=== PATIENT | male | born 1955 | race Caucasian/White ===

== ENCOUNTER 2021-11-06 10:09 | Observation (INO) ==
--- NOTE | 2021-10-06 08:47 | PAT Medication Instructions ---
Medication Instructions Date of Service October 06, 2021 Home Medications atorvastatin 80 mg tablet 80 mg PO QAM clonazepam 0.5 mg tablet 0.25 mg PO QAM diclofenac sodium 75 mg tablet,delayed release 75 mg PO BID doxazosin 2 mg tablet 2 mg PO HS esomeprazole magnesium 40 mg capsule,delayed release 40 mg PO BID famotidine 40 mg tablet 40 mg PO HS lisinopril 20 mg-hydrochlorothiazide 25 mg tablet 0.5 tab PO QAM montelukast 10 mg tablet (Singulair) 10 mg PO QAM potassium chloride 10 mEq capsule,extended release 10 meq PO QAM torsemide 20 mg tablet 20 mg PO QAM valacyclovir 1 gram tablet 2,000 mg PO DAILY PRN bupropion HCl 100 mg tablet,12 hr sustained-release 100 mg PO BID cyclobenzaprine 10 mg tablet 10 mg PO HS d-mannose 500 mg capsule 500 mg PO BID fenofibrate nanocrystallized 145 mg tablet 145 mg PO QAM fentanyl 50 mcg/hr transdermal patch 1 patch TRANSDERMAL Q72H ferrous sulfate 325 mg (65 mg iron) tablet (iron) 325 mg PO QAM folic acid 1 mg tablet 1 mg PO QAM lactobacillus combination no.4 3 billion cell capsule (Probiotic) 3,000 mmu cells PO QAM levothyroxine 125 mcg tablet 125 mcg PO QAM [id number] 24,000-76,000-120,000 unit capsule,delayed rel (Creon) 3 - 4 cap PO BID multivitamin 1 cap PO QAM oxycodone-acetaminophen 5 mg-325 mg tablet 1 tab PO Q6H PRN sertraline 100 mg tablet 150 mg PO QAM sucralfate 1 gram tablet (Carafate) 1 g PO HS tafluprost (PF) 0.0015 % eye drops in a dropperette (Zioptan (PF)) 1 drp OPHTHALMIC (EYE) PM testosterone cypionate 200 mg/mL intramuscular kit 200 mg SUBCUT Q7D vibegron 75 mg tablet (Gemtesa) 75 mg PO QAM Continue as directed testosterone cypionate 200 mg/mL intramuscular kit 200 mg SUBCUT Q7D fentanyl 50 mcg/hr transdermal patch 1 patch TRANSDERMAL Q72H (avoid placement near surgery site prior to surgery) ASK your surgeon for instructions diclofenac sodium 75 mg tablet,delayed release 75 mg PO BID STOP taking 2 weeks before surgery (or as soon as possible if surgery is within 2 weeks) d-mannose 500 mg capsule 500 mg PO BID STOP taking 48 hours before surgery fenofibrate nanocrystallized 145 mg tablet 145 mg PO QAM DO NOT take the morning of surgery lisinopril 20 mg-hydrochlorothiazide 25 mg tablet 0.5 tab PO QAM montelukast 10 mg tablet (Singulair) 10 mg PO QAM potassium chloride 10 mEq capsule,extended release 10 meq PO QAM torsemide 20 mg tablet 20 mg PO QAM ferrous sulfate 325 mg (65 mg iron) tablet (iron) 325 mg PO QAM folic acid 1 mg tablet 1 mg PO QAM lactobacillus combination no.4 3 billion cell capsule (Probiotic) 3,000 mmu cells PO QAM [id number] 24,000-76,000-120,000 unit capsule,delayed rel (Creon) 3 - 4 cap PO BID multivitamin 1 cap PO QAM Take morning of surgery With a small sip of water, OTHERWISE NOTHING TO EAT OR DRINK AFTER MIDNIGHT: atorvastatin 80 mg tablet 80 mg PO QAM clonazepam 0.5 mg tablet 0.25 mg PO QAM esomeprazole magnesium 40 mg capsule,delayed release 40 mg PO BID valacyclovir 1 gram tablet 2,000 mg PO DAILY PRN (if needed) bupropion HCl 100 mg tablet,12 hr sustained-release 100 mg PO BID levothyroxine 125 mcg tablet 125 mcg PO QAM oxycodone-acetaminophen 5 mg-325 mg tablet 1 tab PO Q6H PRN (if needed) sertraline 100 mg tablet 150 mg PO QAM vibegron 75 mg tablet (Gemtesa) 75 mg PO QAM Take evening before surgery esomeprazole magnesium 40 mg capsule,delayed release 40 mg PO BID famotidine 40 mg tablet 40 mg PO HS valacyclovir 1 gram tablet 2,000 mg PO DAILY PRN (if needed) bupropion HCl 100 mg tablet,12 hr sustained-release 100 mg PO BID cyclobenzaprine 10 mg tablet 10 mg PO HS d-mannose 500 mg capsule 500 mg PO BID [id number] 24,000-76,000-120,000 unit capsule,delayed rel (Creon) 3 - 4 cap PO BID oxycodone-acetaminophen 5 mg-325 mg tablet 1 tab PO Q6H PRN (if needed) sucralfate 1 gram tablet (Carafate) 1 g PO HS tafluprost (PF) 0.0015 % eye drops in a dropperette (Zioptan (PF)) 1 drp OPHTHALMIC (EYE) PM Other Notes If you have any questions please call us at [phone] or [phone] or [phone] or [phone]
--- NOTE | 2021-10-07 10:38 | Anesthesiology Consultation ---
Date of Service October 07, 2021 Assessment & Plan (1) Encounter for pre-operative examination: - Cr 3.2, GFR 18 pre-op: I spoke with EVARISTO Toledo at PCP office who advised he does have known CKD stage 3 though last Cr on file was 2.3. She states they will further follow with patient and aware I will fax optimization note/clearance with testing completed today for pre-op clearance. Pt and aware, they state will also call PCP to further discuss. Awaiting PCP clearance. - pt preference to avoid laying flat d/t GERD/multi-level spinal fusion. - difficult intubation: severe cervical ROM limitation s/p fusion: cannot tip head to drink-uses straw. - COVID screening: Per assessment on 10/07/2021: Travel screen negative, no known COVID-19 positive contacts or current COVID-19 related symptoms in past 2 weeks. Pt vaccinated. Surgeon arranging preop COVID testing, scheduled 11/04/2021. Awaiting results. Chart Review Chart Review: Pending: Refer to Additional Notes / Consult section and Patient seen in Pre Admission Testing Teaching & Discussion Pre-Anesthesia Teaching/Discussion Notes: Instructed NPO after midnight before surgery, except medications with 15 cc of water. Medication instructions provided according to the PAT guidelines. History Surgery Operation Date: 11/06/21 08:10 Proposed Procedures p Left Reverse Total Shoulder Arthroplasty - Palomo Godoy DO Height/Weight Height: 5 ft 5 in Weight: 95.9 kg Allergies Allergy/AdvReac Type Severity Reaction Status Date / Time Sulfa (Sulfonamide Allergy Intermediate Verified 10/05/21 11:03 Antibiotics) prochlorperazine AdvReac Intermediate Verified 10/05/21 11:03 [From Compazine] Medications Home Medications Medication Instructions Recorded Confirmed Last Taken atorvastatin 80 mg tablet 80 mg PO QAM 08/25/21 10/07/21 Unknown clonazepam 0.5 mg tablet 0.25 mg PO QAM 08/25/21 10/07/21 Unknown diclofenac sodium 75 mg 75 mg PO BID 08/25/21 10/07/21 Unknown tablet,delayed release doxazosin 2 mg tablet 2 mg PO HS 08/25/21 10/07/21 Unknown esomeprazole magnesium 40 mg 40 mg PO BID cap 08/25/21 10/07/21 Unknown capsule,delayed release famotidine 40 mg tablet 40 mg PO HS 08/25/21 10/07/21 Unknown lisinopril 20 0.5 tab PO QAM 08/25/21 10/07/21 Unknown mg-hydrochlorothiazide 25 mg tablet montelukast 10 mg tablet 10 mg PO QAM 08/25/21 10/07/21 Unknown (Singulair) potassium chloride 10 mEq 10 meq PO QAM 08/25/21 10/07/21 Unknown capsule,extended release torsemide 20 mg tablet 20 mg PO QAM tab 08/25/21 10/07/21 Unknown valacyclovir 1 gram tablet 2,000 mg PO DAILY PRN tab 08/25/21 10/07/21 Unknown bupropion HCl 100 mg tablet,12 hr 100 mg PO BID 10/05/21 10/07/21 Unknown sustained-release cyclobenzaprine 10 mg tablet 10 mg PO HS 10/05/21 10/07/21 Unknown d-mannose 500 mg capsule 500 mg PO BID 10/05/21 10/07/21 Unknown fenofibrate nanocrystallized 145 145 mg PO QAM 10/05/21 10/07/21 Unknown mg tablet fentanyl 50 mcg/hr transdermal 1 patch TRANSDERMAL Q72H 10/05/21 10/07/21 Unknown patch ferrous sulfate 325 mg (65 mg 325 mg PO QAM 10/05/21 10/07/21 Unknown iron) tablet (iron) folic acid 1 mg tablet 1 mg PO QAM 10/05/21 10/07/21 Unknown lactobacillus combination no.4 3 3,000 mmu cells PO QAM 10/05/21 10/07/21 Unknown billion cell capsule (Probiotic) levothyroxine 125 mcg tablet 125 mcg PO QAM 10/05/21 10/07/21 Unknown ylsonl-krjfergv-vmozakw 3 - 4 cap PO BID 10/05/21 10/07/21 Unknown 24,000-76,000-120,000 unit capsule,delayed rel (Creon) multivitamin 1 cap PO QAM 10/05/21 10/07/21 Unknown oxycodone-acetaminophen 5 mg-325 1 tab PO Q6H PRN 10/05/21 10/07/21 Unknown mg tablet sertraline 100 mg tablet 150 mg PO QAM 10/05/21 10/07/21 Unknown sucralfate 1 gram tablet (Carafate) 1 g PO 10/05/21 10/07/21 Unknown tafluprost (PF) 0.0015 % eye drops 1 drp OPHTHALMIC (EYE) PM 10/05/21 10/07/21 Unknown in a dropperette (Zioptan (PF)) testosterone cypionate 200 mg/mL 200 mg SUBCUT Q7D 10/05/21 10/07/21 Unknown intramuscular kit vibegron 75 mg tablet (Gemtesa) 75 mg PO QAM 10/05/21 10/07/21 Unknown tolterodine 4 mg capsule,extended 4 mg PO QPM 10/07/21 10/07/21 Unknown release 24 hr Past Medical History Medical History (Updated 10/07/21 @ 15:37 by Enedina Steele PA-C) CKD (chronic kidney disease) stage 3, GFR 30-59 ml/min DDD (degenerative disc disease) severe, s/p multiple spinal surgeries Depression DVT (deep venous thrombosis) LLE-5 yrs ago Eyelid abnormality pt requests taping eyelids close during surgery as do not fully-experiences severe dry eyes/tearing post-op if not taped GERD (gastroesophageal reflux disease) does not prefer to lay flat d/t reflux/back/neck pain History of blood transfusion History of stroke 2010 or 2011 stroke after surgical intervention "clip" for traumatic brain bleed Hyperlipidemia Hypertension Hypothyroidism Imbalance chronic, fall risk per pt, utilizes cane with ambulation Neurogenic bladder requires catheterization q 6 hours PONV (postoperative nausea and vomiting) Raynaud disease Sleep apnea pt not treating at this time Swallowing dysfunction s/p cervical fusion-staff to discuss with pt regarding inpatient nutritional needs Patient denies h/o seizures, heart attack, or heart failure. Exercise / Class Metabolic Activity II 4-5 Yardwork/Stairs/Walk up hill (denies CP or SOB with 1 FOS) Past Surgical History Surgical History (Updated 10/07/21 @ 10:31 by Enedina Steele PA-C) History of ear surgery over 15 yrs ago - repair from fall History of right shoulder replacement History of surgery of head 2010- or 2011 fell and hit his head and had brain bleed, clip placed for bleed and neurology said he had stroke rina-op. Hx laparoscopic cholecystectomy Hx of eye surgery repair muscle from nerve damage Hx of foot surgery repair of bunion and accidental injury to tendon and still having trouble Hx of hand surgery repair of laceration from dog bite, ulner nerve surgery Hx of spinal surgery x13 entire spine is fused, except C1 last neck surgery was 09/2020 in [place] due to spinal fusion, he has limitations with neck. when drinking he needs to use straw he can not tip head to drink.needs pudding to take pills so he does not choke Hx of varicose veins right leg, tied off varicose vein Past Anesthesia History Difficult Airway and No Family Hx of Anesthesia Complications History of PONV History of PONV (denies needing scop patch) and Hx of Motion Sickness Social History Smoking Status: Never smoker Do You Dip or Chew Tobacco: No Hx Alcohol Use: No Hx Substance Use: No substance use type: does not use Review of Systems Patient denies chest pain, shortness of breath, dyspnea on exertion, fever, chills, cough, wheezing, or palpitations. Physical Exam Vital Signs Vitals BP 131/82 P 75 TEMP 98.9 SP02 99% on RA RESP 17 Physical Severely limited cervical ROM (Pt unable to tip head forward to drink-uses straw) TMD 3.5 finger breaths Mallampati Score 3, macroglossia Dentition: intact, denies missing, chipped or loose teeth, caps/crowns, implants or bridges Lungs: normal respiratory effort. Clear throughout to auscultation, no adventitious breath sounds Cardiac: regular rate and rhythm, no murmurs noted Carotid arteries: negative bruit bilat Lab Results Anesthesia Preop Results Results Anesthesia Widget: WBC 4.51 K/uL (4.8-10.8) L 10/07/21 Hgb 12.7 g/dL (14.0-18.0) L 10/07/21 Hct 38.7 % (42-52) L 10/07/21 Plt 198 K/uL (130-400) 10/07/21 Na 137 mmol/L (136-145) 10/07/21 K 3.9 mmol/L (3.5-5.1) 10/07/21 Cl 97 mmol/L (98-107) L 10/07/21 CO2 33 mmol/L (21-32) H 10/07/21 BUN 42 mg/dl (6-23) H 10/07/21 Creat 3.24 mg/dl (0.6-1.4) H 10/07/21 Glucose Level 117 mg/dl (70-99(Fasting)) H 10/07/21 PT 10.9 Seconds (9.0-12.0) 10/07/21 PTT 25.1 Seconds (21.0-31.0) 10/07/21 INR 1.0 (0.9-1.1) 10/07/21 Blood Type A Positive 10/07/21 Antibody Screen NEGATIVE 10/07/21 Testing Electrocardiogram Date: 10/07/21 NSR, rate 72 bpm Chest X-Ray Date: 10/07/21 Frontal and lateral radiographs of the chest demonstrate the cardiomediastinal silhouette to be within normal limits. The lungs are clear of alveolar opacities. There is no evidence for effusion bilaterally. There is no evidence for vascular congestion. There is no acute osseous pathology. The patient is status post internal fixation of the spine and right shoulder replacement. IMPRESSION: 1. No acute cardiopulmonary disease.
--- NOTE | 2021-11-05 09:41 | History & Physical Report ---
Date of Service November 05, 2021 Assessment & Plan (1) Rotator cuff arthropathy of left shoulder: We will proceed with a left reverse shoulder arthroplasty. Postoperatively he will be placed in a sling and kept overnight in the hospital for postop medical management. He plans to have the hospital set up home health upon discharge. History of Present Illness Chief Complaint: Cuff arthropathy of the left shoulder. Primary Care Provider: [facility] PCP Leonard is a pleasant 66-year-old male who has had 14 spinal surgeries. He has had multiple cervical and lumbar surgeries. He uses a cane and he has weakness because of that. He underwent a right reverse shoulder arthroplasty about 10 years ago at an outside institution. He had a difficult recovery with that. Unfortunately, he is dealing with a lot of left shoulder pain and weakness. He has constant shoulder pain. He has an MRI from another institution which shows a large chronic retracted rotator cuff tear. It has been hurting him for 2 years. He has done therapy. He has been taking anti-inflammatories. He has difficulty sleeping with the rotator cuff tear. After failing conservative treatment, he has elected proceed with a left reverse shoulder arthroplasty. Allergies Allergy/AdvReac Type Severity Reaction Status Date / Time Sulfa (Sulfonamide Allergy Intermediate Verified 10/05/21 11:03 Antibiotics) prochlorperazine AdvReac Intermediate Verified 10/05/21 11:03 [From Compazine] Home Medications Medication Instructions Recorded Confirmed Type atorvastatin 80 mg tablet 80 mg PO QAM 08/25/21 10/07/21 History clonazepam 0.5 mg tablet 0.25 mg PO QA 08/25/21 10/07/21 History diclofenac sodium 75 mg 75 mg PO BID 08/25/21 10/07/21 History tablet,delayed release doxazosin 2 mg tablet 2 mg PO 08/25/21 10/07/21 History esomeprazole magnesium 40 mg 40 mg PO BID 08/25/21 10/07/21 History capsule,delayed release famotidine 40 mg tablet 40 mg PO 08/25/21 10/07/21 History lisinopril 20 0.5 tab PO QAM 08/25/21 10/07/21 History mg-hydrochlorothiazide 25 mg tablet montelukast 10 mg tablet 10 mg PO QAM 08/25/21 10/07/21 History (Singulair) potassium chloride 10 mEq 10 meq PO QAM 08/25/21 10/07/21 History capsule,extended release torsemide 20 mg tablet 20 mg PO QAM 08/25/21 10/07/21 History valacyclovir 1 gram tablet 2,000 mg PO DAILY PRN flare up 08/25/21 10/07/21 History bupropion HCl 100 mg tablet,12 hr 100 mg PO BID 10/05/21 10/07/21 History sustained-release cyclobenzaprine 10 mg tablet 10 mg PO HS 10/05/21 10/07/21 History d-mannose 500 mg capsule 500 mg PO BID 10/05/21 10/07/21 History fenofibrate nanocrystallized 145 145 mg PO QAM 10/05/21 10/07/21 History mg tablet fentanyl 50 mcg/hr transdermal 1 patch transdermal Q72H 10/05/21 10/07/21 History patch ferrous sulfate 325 mg (65 mg 325 mg PO QAM 10/05/21 10/07/21 History iron) tablet (iron) folic acid 1 mg tablet 1 mg PO QAM 10/05/21 10/07/21 History lactobacillus combination no.4 3 3,000 mmu cells PO QAM 10/05/21 10/07/21 History billion cell capsule (Probiotic) levothyroxine 125 mcg tablet 125 mcg PO QAM 10/05/21 10/07/21 History nfhuyh-tohhgpch-pujmeda 3 - 4 cap PO BID 10/05/21 10/07/21 History 24,000-76,000-120,000 unit capsule,delayed rel (Creon) multivitamin 1 cap PO QAM 10/05/21 10/07/21 History oxycodone-acetaminophen 5 mg-325 1 tab PO Q6H PRN Pain 10/05/21 10/07/21 History mg tablet sertraline 100 mg tablet 150 mg PO QAM 10/05/21 10/07/21 History sucralfate 1 gram tablet (Carafate) 1 g PO HS 10/05/21 10/07/21 History tafluprost (PF) 0.0015 % eye drops 1 drp ophthalmic (eye) PM 10/05/21 10/07/21 History in a dropperette (Zioptan (PF)) testosterone cypionate 200 mg/mL 200 mg subcut Q7D 10/05/21 10/07/21 History intramuscular kit vibegron 75 mg tablet (Gemtesa) 75 mg PO QAM 10/05/21 10/07/21 History tolterodine 4 mg capsule,extended 4 mg PO QPM 10/07/21 10/07/21 History release 24 hr Past Med/Surg History Medical History CKD (chronic kidney disease) stage 3, GFR 30-59 ml/min DDD (degenerative disc disease) severe, s/p multiple spinal surgeries Depression DVT (deep venous thrombosis) LLE-5 yrs ago Eyelid abnormality pt requests taping eyelids close during surgery as do not fully-experiences severe dry eyes/tearing post-op if not taped GERD (gastroesophageal reflux disease) does not prefer to lay flat d/t reflux/back/neck pain History of blood transfusion History of stroke 2010 or 2011 stroke after surgical intervention "clip" for traumatic brain bleed Hyperlipidemia Hypertension Hypothyroidism Imbalance chronic, fall risk per pt, utilizes cane with ambulation Neurogenic bladder requires catheterization q 6 hours PONV (postoperative nausea and vomiting) Raynaud disease Sleep apnea pt not treating at this time Swallowing dysfunction s/p cervical fusion-staff to discuss with pt regarding inpatient nutritional needs Surgical History History of ear surgery over 15 yrs ago - repair from fall History of right shoulder replacement History of surgery of head 2010- or 2011 fell and hit his head and had brain bleed, clip placed for bleed and neurology said he had stroke rina-op. Hx laparoscopic cholecystectomy Hx of eye surgery repair muscle from nerve damage Hx of foot surgery repair of bunion and accidental injury to tendon and still having trouble Hx of hand surgery repair of laceration from dog bite, ulner nerve surgery Hx of spinal surgery x13 entire spine is fused, except C1 last neck surgery was 09/2020 in [place] due to spinal fusion, he has limitations with neck. when drinking he needs to use straw he can not tip head to drink.needs pudding to take pills so he does not choke Hx of varicose veins right leg, tied off varicose vein Social History Smoking Status: Never smoker Second Hand Exposure: No; Hx Alcohol Use: No Hx Substance Use: No Preferred Language: Italian Communication Ability: Effective [place] Reporter Required: No Beliefs That Will Affect Care: None Current Living Situation: Spouse Feels Safe at Home: Yes Assistive Devices: Cane and Glasses Review of Systems All systems reviewed & are unremarkable except as noted in HPI & below. Physical Exam On physical examination of left shoulder, he has about 120 degrees of forward elevation on 20 degrees of abduction. He has 3 out of 5 motor strength with full can test and external rotation.. Constitutional WD/WN, vitals as above Eyes PERRL, conjunctivae normal, anicteric sclerae ENMT external ear and nose normal, oropharynx normal Neck trachea midline, no thyromegaly Respiratory normal respiratory effort, lungs clear to auscultation Cardiovascular RRR, no murmur, no edema Gastrointestinal (Abdomen) normal bowel sounds, soft, nontender, no hepatosplenomegaly Skin no rashes, warm and dry Psychiatric A+Ox3, euthymic affect Results & Data Results & Data Laboratory Results . Diagnostic Findings X-rays of the left shoulder show superior migration of the humeral head on the glenoid. MRI of the left shoulder shows chronic retracted rotator cuff tear with significant muscle atrophy.. PG Care Time/CCT Total # of Minutes Spent Total Time Spent with Patient: Total time spent is greater than 50% in coordination of care (as documented) at patient's floor/unit and/or counseling patient: Coding Level of Care Code None Diagnoses Rotator cuff arthropathy of left shoulder M12.812
[~2021-11-06 10:09] MED LIST: ACETAMINOPHEN 500 MG TAB PO SCH; BUPIVACAINE 0.5 % 5 MG/1 ML PF 10ML VIAL ONE; FAMOTIDINE 20 MG TAB PO SCH; GABAPENTIN 300 MG CAP PO SCH; Ketorolac (*for OR use only*) 30 MG, dexAMETHasone 4 MG, KETAMINE HCL (**OR use only) 1... INFIL SCH; LIDOCAINE 2% MPF LOCAL 5 ML VIAL INFIL ONE; LR 60ML/HR IV SCH; MIDAZOLAM HCL 1 MG/ML 2ML VIAL ONE; ONDANSETRON INJ 2 MG/ML 2 ML VIAL ONE; PROPOFOL IV EMULSION 10 MG/ML 20 ML VIAL IV ONE; ROCURONIUM BROMIDE 10 MG/ML 5 ML VIAL IV ONE; SODIUM CHLORIDE 0.9% 1000ML IV SCH; TRANEXAMIC ACID 1,000 MG **IV Intra-op IV SCH; TRANEXAMIC ACID 1,000 MG **IV Pre-op IV SCH; ceFAZolin 2000MG 2,000 MG/15 ML SYR IV SCH; dexAMETHasone 4 MG TAB PO SCH; fentaNYL citrate 100 MCG/2 ML VIAL ONE
--- NOTE | 2021-11-06 10:22 | History & Physical Bridge Note ---
Date of Service November 06, 2021 History & Physical Bridge Note I have examined the patient, reviewed the History & Physical and in the interval since the performance of the History & Physical I have noted the following changes of clinical significance: no changes noted
[2021-11-06] MEDS ORDERED: ORTHO JOINT ANESTHETIC ONE (10:45)
[2021-11-06] MEDS ORDERED: DEXAMETHASONE SOD INJ 4 MG/ML VIAL ONE (12:15)
[2021-11-06] MEDS ORDERED: ePHEDrine sulfate 50 MG/ML AMP ONE (12:15)
[2021-11-06] MEDS ORDERED: VASOPRESSIN 20 UNIT/ML VIAL ONE (12:35)
[2021-11-06] MEDS ORDERED: PHENYLEPHRINE HCL 10 MG/ML VIAL ONE (12:35)
[2021-11-06] MEDS ORDERED: GLYCOPYRROLATE 0.2 MG/ML VIAL ONE ×2 (12:50→12:53)
[2021-11-06] MEDS ORDERED: NEOSTIGMINE METHYLSULFATE 1 MG/ML 10ML VIAL ONE (12:53)
--- NOTE | 2021-11-06 12:55 | Operative Report ---
PG Post Operative Report Pre & Post Diagnosis Operation Date: 11/06/21 11:30 Pre-Op Diagnosis: Rotator cuff arthropathy of left shoulder with tendinopathy long head of the biceps tendon Post-Op Diagnosis: Rotator cuff arthropathy of left shoulder with tendinopathy long head of the biceps tendon I identified the patient and participated in the time-out.: Yes Procedure Operation Date: 11/06/21 11:30 Actual Procedures p Left Reverse Total Shoulder Arthroplasty(Left) with open biceps tenodesis as a distinct and separate procedure (modifier 59)- Palomo Godoy DO Surgeon Palomo Godoy DO Cotton Agent Palomo Kessler PA-C Estimated Blood Loss 250 Findings Consistent with Post-Op Diagnosis Specimens Right humeral head Description of Procedure A CPT code modifier 59: The long head of the biceps tendon was enlarged and inflamed consistent with tendinopathy. A tenodesis was opted. This was a separate and distinct portion of the procedure. For these reasons, a CPT code modifier 59 will be added to this case. Implants used: I used a [employer]omet Comprehensive reverse total shoulder arthroplasty system with a size 10 press fit micro humeral stem, a standard humeral tray and a standard humeral bearing, a 25 mm small augment baseplate with a 6.5 mm central screw and superior and inferior locking screws, and a size 36 mm eccentric glenosphere. Leonard arrived at [facility] for the above procedure. He was seen in the preoperative holding area and the operative extremity was identified and signed. He was given a preoperative antibiotic, TXA, and an interscalene nerve block. He was taken back to the operating room, laid on table in supine position, and put under general anesthesia. He was then put into the beachchair position. The shoulder was then prepped and draped in sterile fashion. A timeout was done and the patient and the operative extremity was properly identified. A deltopectoral approach was used. Dissection was taken down through the fascia and the deltoid was retracted laterally and the conjoined tendon was retracted medially. The anterior shoulder was exposed. The biceps groove was opened up and the biceps tendon was examined extensively. The biceps tendon demonstrated enlargement and inflammatory changes consistent with longstanding inflammation in the context of osteoarthritis and cuff arthropathy. The long head of the biceps tendon was then tenodesed to the upper border of the pectoralis major. This was a separate and distinct portion of the procedure. The subscapularis was then directly released off the lesser tuberosity with a peel technique. The inferior capsule was released and the humeral head was dislocated. A canal finding reamer was sent down the center of the humeral canal. Sequential reaming up to a size 10 reamer was done. Off that reamer, a proximal humeral resection guide was placed. The proximal humerus was resected at 135 of inclination and 25 of retroversion. Osteophytes were then removed and the glenoid was exposed. Time was spent doing a complete capsular and labral release. The glenoid guide was then placed in the inferior aspect of the glenoid. A 3.2 mm Steinmann pin was then placed into the glenoid vault at 10 of inclination. The glenoid baseplate was then reamed. The final size 25 mm small augment baseplate was then impacted in the place. A 6.5 mm central screw was then placed followed by superior and inferior locking screws. A 36 eccentric glenosphere was then impacted into place. Surrounding soft tissues were then injected with 100 cc an orthopedic pain control cocktail. The proximal humerus was then exposed. Sequential broaching of the humerus up to a size 10 broach was done. Off that broach a standard humeral tray was trialed. The shoulder was then reduced, brought through a full range of motion, and felt to be stable. The shoulder was then dislocated and the broach was removed. The final size 10 micro press-fit humeral stem was then impacted into place. A standard humeral bearing was then snapped onto a standard humeral tray. The humeral tray was then impacted onto the humeral stem. The shoulder was once again reduced, brought through a full range of motion, and felt to be stable. The subscapularis was then tenodesed back to the lesser tuberosity with transosseous FiberWire sutures and side to side sutures with the arm in 45 of external rotation. A dilute betadyne lavage was then done for 3 minutes. The joint was then irrigated with normal saline solution. Hemostasis was obtained. The interval was closed with 2-0 Vicryl suture. The skin was then closed with 2-0 Vicryl and darryl. A Silverlon dressing was placed and the arm was rested in a regular arm sling. He was then extubated and transferred to a hospital bed. He taken to the postanesthesia care unit in stable condition. He tolerated the procedure well. Palomo Kessler PA-C, was present for the entire procedure. He was critical for patient positioning, prepping, draping, retraction exposure, wound closure and application of sterile dressing. I attest to the content of the Intraoperative Record and any orders documented therein. Any exceptions are noted below.
--- NOTE | 2021-11-06 14:05 | XRay Report ---
XR shoulder LT min 2V routine CLINICAL HISTORY: Postop. Left shoulder arthroplasty. COMPARISON STUDY: None. FINDINGS: The patient is status post a reverse left total shoulder arthroplasty. The hardware is inta ct. Skin darryl are in place. No fracture or dislocation. Extensive cervicothoracic spinal fusion hussein rdware is noted. IMPRESSION: Status post reverse left total shoulder arthroplasty. No evidence for hardware complicat ion. ACT 112: Negative or not required by law. Electronically signed by: Ludwin Gracia M.D. 11/06/2021 2:04 PM
--- NOTE | 2021-11-06 14:29 | Anesthesiology Progress Note ---
Date of Service November 06, 2021 Anesthesia Post Procedure Vital Signs Vital Signs: Temp Pulse Pulse Resp BP Pulse Ox O2 Del Method 11/06/21 14:15 97.0 F L 70 15 110/67 95 Room Air 11/06/21 14:05 69 14 108/70 93 Room Air 11/06/21 13:55 73 16 130/76 95 Room Air 11/06/21 13:35 73 21 125/73 100 Oxymask 11/06/21 13:45 74 13 119/70 99 Oxymask 11/06/21 13:26 96.8 F L 73 14 130/70 100 Oxymask 11/06/21 10:41 97.9 F 67 20 143/85 H 100 Room Air O2 Flow Rate 11/06/21 14:15 11/06/21 14:05 11/06/21 13:55 11/06/21 13:35 10 11/06/21 13:45 5 11/06/21 13:26 13 11/06/21 10:41 Pain Intensity Left Shoulder: Pain Intensity: 4 Transfer of Care Handoff Completed per policy Notes Mental Status: alert / awake / arousable and participated in evaluation Patient Amnestic to Procedure: Yes Nausea / Vomiting: adequately controlled Pain: adequately controlled Airway Patency, RR, SpO2: stable & adequate BP & HR: stable & adequate Hydration State: stable & adequate Anesthetic Complications: no major complications apparent and Pt Satisfied with anesthetic care
[2021-11-06] MEDS ORDERED: MAGNESIUM HYDROXIDE SUSP 30 ML UDC PO PRN (17:10)
[2021-11-06] MEDS ORDERED: ONDANSETRON INJ 2 MG/ML 2 ML VIAL IV PRN (17:10)
[2021-11-06] MEDS ORDERED: valACYclovir HCL 500 MG TABLET PO PRN (17:10)
[2021-11-06] MEDS ORDERED: METOCLOPRAMIDE HCL INJ 5 MG/ML 2 ML VIAL IV PRN (17:10)
[2021-11-06] MEDS ORDERED: NALOXONE HCL 0.4 MG/1 ML VIAL/CARP IV PRN (17:10)
[2021-11-06] MEDS ORDERED: HYDROmorphone INJ 0.5 MG/0.5 ML SYR IV PRN (17:10)
[2021-11-06] MEDS ORDERED: oxyCODONE HCL IR 5 MG TAB (IMMEDIATE RELEASE) PO PRN (17:10)
[2021-11-06] MEDS ORDERED: bisacodyL 10 MG SUPP PR PRN (17:10)
[2021-11-06] MEDS: SODIUM CHLORIDE 0.9% 1000ML 1,000 ML IV SCH (18:08)
[2021-11-06] MEDS: ACETAMINOPHEN 500 MG TAB PO SCH ×2 (18:23→21:25)
[2021-11-06] MEDS: KETOROLAC TROMETHAMINE 15 MG/ML VIAL IV SCH ×2 (18:24→23:17)
[2021-11-06] MEDS: ceFAZolin 2000MG 2,000 MG/15 ML SYR IV SCH (19:39)
[2021-11-06] MEDS: PANCREAZE (LIPASE 10,500U) CAP PO SCH (19:49)
[2021-11-06] MEDS: buPROPion SR 100 MG TABCR PO SCH (19:51)
[2021-11-06] MEDS: DOCUSATE SODIUM 100 MG CAP PO SCH (19:51)
[2021-11-06] MEDS ORDERED: CYCLOBENZAPRINE HCL 10 MG TAB PO SCH (21:00)
[2021-11-06] MEDS ORDERED: DOXAZosin MESYLATE TAB 2 MG TAB PO SCH (21:00)
[2021-11-06] MEDS ORDERED: TOLTERODINE TARTRATE LA 4 MG CAPCR PO SCH (21:00)
[2021-11-06] MEDS ORDERED: SENNA 8.6 MG TAB PO SCH (21:00)
[2021-11-07] MEDS: ceFAZolin 2000MG 2,000 MG/15 ML SYR IV SCH (03:53)
[2021-11-07] MEDS: SODIUM CHLORIDE 0.9% 1000ML 1,000 ML IV SCH (03:57)
[2021-11-07] MEDS: ACETAMINOPHEN 500 MG TAB PO SCH (05:46)
[2021-11-07] MEDS: KETOROLAC TROMETHAMINE 15 MG/ML VIAL IV SCH ×2 (05:47→11:34)
[2021-11-07] MEDS ORDERED: LEVOTHYROXINE SODIUM 125 MCG TABLET PO SCH (06:30)
--- NOTE | 2021-11-07 07:24 | Orthopedic Progress Note ---
Date of Service November 07, 2021 Assessment & Plan (1) Status post reverse total replacement of left shoulder: Overall is doing very well. Is not having much pain in the left shoulder. He will be seen by physical therapy today for ambulation and range of motion exercises. He can be discharged home later today. He will follow-up with orthopedics in 2 weeks. Shelton Valle was seen and examined at bedside this morning. Overall is doing very well. Is not having much pain in the left shoulder. He was able to get some sleep last night. Has no complaints.. Review of Systems All systems reviewed & are unremarkable except as noted in HPI & below. Physical Exam On physical examination of the left shoulder, the dressing is clean and dry. He has motion of his hand and his wrist. He is wearing his sling as instructed.. Results & Data Results & Data Laboratory Results . Diagnostic Findings Postoperative x-rays of the left shoulder show the prosthesis to be in anatomic alignment without any evidence of fracture, desiccation, or loosening. PG Care Time/CCT Total # of Minutes Spent Total Time Spent with Patient: Total time spent is greater than 50% in coordination of care (as documented) at patient's floor/unit and/or counseling patient: Coding Level of Care Code 14548 Post Operative Follow-Up Diagnoses Status post reverse total replacement of left shoulder Z96.612
--- NOTE | 2021-11-07 07:25 | Discharge Summary ---
Date of Service November 07, 2021 Admission HPI (Per Admitting) Leonard is a pleasant 66-year-old male who has had 14 spinal surgeries. He has had multiple cervical and lumbar surgeries. He uses a cane and he has weakness because of that. He underwent a right reverse shoulder arthroplasty about 10 years ago at an outside institution. He had a difficult recovery with that. Unfortunately, he is dealing with a lot of left shoulder pain and weakness. He has constant shoulder pain. He has an MRI from another institution which shows a large chronic retracted rotator cuff tear. It has been hurting him for 2 years. He has done therapy. He has been taking anti-inflammatories. He has difficulty sleeping with the rotator cuff tear. After failing conservative treatment, he has elected proceed with a left reverse shoulder arthroplasty. Admission Exam (Per Admitting) On physical examination of left shoulder, he has about 120 degrees of forward elevation on 20 degrees of abduction. He has 3 out of 5 motor strength with full can test and external rotation.. Principal Diagnosis Same as "Discharge Diagnosis" noted below under Discharge Instructions. Discharge Exam On physical examination of the left shoulder, the dressing is clean and dry. He has motion of his hand and his wrist. He is wearing his sling as instructed.. Discharge Data Procedures Performed Operation Date: 11/06/21 11:30 Actual Procedures p Left Reverse Total Shoulder Arthroplasty(Left) - Palomo Godoy DO Ordered Studies 11/06/21 05:00 US - OR guided needle placemen Routine Hospital Course (1) Status post reverse total replacement of left shoulder: On November 06, 2021 Leonard arrived at [facility] and underwent a left reverse shoulder replacement without complication. He had a general anesthetic and a left interscalene nerve block. Postoperatively he was placed in a sling and transferred to the general orthopedic floors. His hospital course was uneventful. On postop day #1, his vital signs were stable and his pain was well controlled. He was able to participate well with physical therapy doing ambulation and range of motion exercises. He was then discharged home. He will follow-up with orthopedics in 2 weeks. PG Care Time/CCT Total # of Minutes Spent Total Time Spent with Patient: Total time spent is greater than 50% in coordination of care (as documented) at patient's floor/unit and/or counseling patient: Discharge Plan Discharge Items Patient Disposition: Home - Home Health Services Reason For Visit: Degenerative Joint Disease Left Shoulder Discharge Diagnosis: Left reverse shoulder replacement Activity: Per Instructions section Non-emergency contact: Surgeon Call non-emergency contact if: your wound has increased redness and your wound has increased drainage Follow-up/Referrals: PCP,NO [Primary Care Provider] - Diet: Regular Addtl Attending Provider Instructions: Activity and Therapy Recommendations: * If you are using [facility] then therapy will be provided at your home until they feel you have accomplished all of your goals. * If you are using [facility] then Physical Therapy will be provided until they feel you are ready to start Outpatient Physical Therapy. * If you are not using home therapy then Outpatient Physical Therapy should start about 3-5 days from your day of surgery. Therapy will last about 8-12 weeks * Wear your sling for 3 weeks, unless otherwise instructed. You may remove your sling to shower and to dress, but otherwise, you should be in your sling at all times, including while sleeping * The shoulder replacement is very stable and you can use your hand while in the sling * You were shown a series of exercises in the hospital. Do these exercises daily including the exercises you were shown in physical therapy. Medications: * Narcotic You will likely be sent home from the hospital with a prescription for the narcotic pain medication that worked best throughout your stay. * Other medications may be prescribed for specific circumstances. If you have any questions, please call the office at . * Resume previous home medications unless otherwise instructed Dressing Care: Leave the Silverlon dressing in place for 7 days. After 7 days you may remove the dressing. If the incision is not draining then you may leave the darryl open to air. If there is a little bit of drainage or if the darryl are getting stuck on your clothing then cover the incision with a dry dressing. The darryl will be removed at your 2 week follow-up appointment. Showering: You may shower with the Silverlon dressing in place. Do not let the shower spray hit the dressing directly. Pat the Silverlon dressing dry. If the dressing becomes wet underneath, then simply remove the dressing. Keep the incision dry until you are 7 days out from the day of surgery. After 7 days you may remove the Silverlon dressing and shower with the darryl exposed. Let soapy water run over the darryl and pat them dry. Do not scrub or soak the incision. Things To Watch For: * Drainage from the incision site that occurs more than one week after your surgery. * Increased redness at the incision site. * Fever above 102 degrees Fahrenheit. * Unusual chest pain or shortness of breath. * Call [facility] at with any of the above problems Follow-Up Visit: Follow-up with Dr. Godoy's PA (Palomo Kessler) 2-3 weeks after your day of surgery. He will remove your darryl and answer any questions. If you have any additional questions or concerns, Dr Godoy is usually in the office at the same time and will be available An appointment was probably scheduled when you signed-up for surgery in the office. If you have any questions call More detailed instructions as well as Frequently Asked Questions were provided in a folder by our office when you signed-up for surgery. Please review these instructions when you get home. If you have any further questions or concerns, please feel free to call the office at [phone] Pending Studies at Discharge: No Stand-Alone Forms: [facility] Medications and DC Order Prescriptions: Continued torsemide 20 mg tablet 20 mg PO QAM montelukast [Singulair] 10 mg tablet 10 mg PO QAM atorvastatin 80 mg tablet 80 mg PO QAM clonazepam 0.5 mg tablet 0.25 mg PO QAM lisinopril-hydrochlorothiazide 20-25 mg tablet 0.5 tab PO QAM famotidine 40 mg tablet 40 mg PO HS esomeprazole magnesium 40 mg capsule,delayed release(DR/EC) 40 mg PO BID diclofenac sodium 75 mg tablet,delayed release (DR/EC) 75 mg PO BID valacyclovir 1 gram tablet 2,000 mg PO DAILY PRN (Reason: flare up) doxazosin 2 mg tablet 2 mg PO HS potassium chloride 10 mEq capsule, extended release 10 meq PO QAM cyclobenzaprine 10 mg Tablet 10 mg PO HS fentanyl 50 mcg/hr Patch 72 Hour 1 patch TRANSDERMAL Q72H sucralfate [Carafate] 1 gram Tablet 1 g PO HS sertraline 100 mg Tablet 150 mg PO QAM bupropion HCl 100 mg Tablet Sustained-Release 12 Hr 100 mg PO BID ferrous sulfate [iron] 325 mg (65 mg iron) Tablet 325 mg PO QAM levothyroxine 125 mcg Tablet 125 mcg PO QAM folic acid 1 mg Tablet 1 mg PO QAM multivitamin Capsule 1 cap PO QAM Probiotic 3 billion cell Capsule 3,000 mmu cells PO QAM testosterone cypionate 200 mg/mL Kit 200 mg SUBCUT Q7D d-mannose 500 mg Capsule 500 mg PO BID fenofibrate nanocrystallized 145 mg Tablet 145 mg PO QAM Creon 24,000-76,000 -120,000 unit Capsule,Delayed Release(Dr/Ec) 3 - 4 cap PO BID Zioptan (PF) 0.0015 % Dropperette 1 drp OPHTHALMIC (EYE) PM Gemtesa 75 mg Tablet 75 mg PO QAM tolterodine 4 mg Capsule,Extended Release 24hr 4 mg PO QPM oxycodone-acetaminophen 5-325 mg Tablet 1 tab PO Q6H PRN (Reason: Pain) Qty: 40 0RF Rx Instructions: takes one in am and 2 HS Discharge Orders: Discharge Order (Routine); Ordered 11/07/21 Ordered By: Palomo Godoy Admission Data Admit Date/Time: 11/06/21 13:20 Attending Provider: Palomo Godoy Admit Provider: Palomo Godoy Primary Care Provider: [id number]
[2021-11-07] MEDS ORDERED: dexAMETHasone 4 MG TAB PO SCH (08:00)
[2021-11-07] MEDS: DOCUSATE SODIUM 100 MG CAP PO SCH (08:42)
[2021-11-07] MEDS: PANCREAZE (LIPASE 10,500U) CAP PO SCH (08:42)
[2021-11-07] MEDS: buPROPion SR 100 MG TABCR PO SCH (08:43)
[2021-11-07] MEDS ORDERED: FENOFIBRATE NANOCRYSTALLIZED 145 MG TABLET PO SCH (09:00)
[2021-11-07] MEDS ORDERED: MULTIVITAMIN TAB PO SCH (09:00)
[2021-11-07] MEDS ORDERED: TORSEMIDE 20 MG TAB PO SCH (09:00)
[2021-11-07] MEDS ORDERED: ATORVASTATIN 40 MG TAB PO SCH (09:00)
[2021-11-07] MEDS ORDERED: MONTELUKAST SODIUM 10 MG TABLET PO SCH (09:00)
[2021-11-07] MEDS ORDERED: clonazePAM 0.25 MG TAB PO SCH (09:00)
[2021-11-07] MEDS ORDERED: LISINOPRIL/HCTZ 20/25MG 1 TAB PO SCH (09:00)
[2021-11-07] MEDS ORDERED: POTASSIUM CHLORIDE 10 MEQ TABCR PO SCH (09:00)
[2021-11-07] MEDS ORDERED: SERTRALINE HCL 50 MG TABLET PO SCH (09:00)
== END 2021-11-07 12:21 | disposition home or self-care (01) ==
LOC: ASU 10:09 → 3W 10:09